=== PATIENT | male | born 1975 | race Two or more races ===

== ENCOUNTER 2019-02-03 21:55 | Emergency (ER) | payer SELFPAY ==
[~2019-02-03] VITALS: Ht 177.8 cm; Wt 79.4 kg
[2019-02-03 22:00] VITALS: BP 112/72
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
--- NOTE | 2019-02-03 22:38 | NUR ---
PT OFF TO CT
--- NOTE | 2019-02-03 23:11 | NUR ---
ED Nurse Note: [employer] at the bedside.
--- NOTE | 2019-02-03 23:17 | Diagnostic Imaging Report ---
Indication: Altered mental status Technique: Contiguous 5 mm thick transaxial imaging of the head obtained in a Siemens Sensation [address] scanner. Soft tissue and bone windows generated. Automatic Exposure Control was utilized. Total Dose length Product (DLP): 1578.[address] Dose Index Volume (CTDIvol): 62.7 mGy Comparison: none Findings: The size and configuration of the cortical sulci, basal cisterns, and ventricles are within normal limits for age. There is no mass effect, midline shift, or edema identified. There is no evidence of acute hemorrhage or abnormal intra-axial or extra-axial fluid collections. The bones and soft tissues are unremarkable. Impression: No mass effect, edema or acute bleed. The CT scanner at [facility] is accredited by the [employer] and the scans are performed using dose optimization techniques as appropriate to a performed exam including Automatic Exposure control.
--- NOTE | 2019-02-03 23:25 | NUR ---
ED Nurse Note: back from CT
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
[2019-02-04 00:11] VITALS: BP 119/80
--- NOTE | 2019-02-04 00:30 | NUR ---
ED Nurse Note: pt in bed resting with eyes closed. No acute distress is noted.
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
--- NOTE | 2019-02-04 01:50 | NUR ---
ED Nurse Note: pt in bed resting with eyes closed. no acute distress is present at this time.
--- NOTE | 2019-02-04 02:05 | NUR ---
ED Nurse Note: pt is awake, alert x4. ambulated to use the restroom.
[2019-02-04 02:14] VITALS: BP 125/75
--- NOTE | 2019-02-04 02:14 | NUR ---
ER DISCHARGE NOTE: Patient is cleared to be discharged per ERMD, pt is aox4, on room air, with stable vital signs. pt was given d instructions, pt was able to verbalize understanding, pt id band removed without complications. pt is able to ambulate with steady gait. pt took all belongings.
--- NOTE | 2019-02-04 11:42 | Diagnostic Imaging Report ---
Indication: Dyspnea Comparison: None A single view chest radiograph was obtained. Findings: Cardiomediastinal appearance is within normal limits for age. The lungs are clear. Pulmonary vascularity is appropriate. The diaphragmatic contour is smooth and costophrenic angles are sharp. No pleural effusions are identified. The bones are unremarkable. Impression: No acute findings
== END 2019-02-04 02:14 | disposition home or self-care (01) ==
LOC: EDBD 21:55 → EMR 22:09
DX: F19.929 Other psychoactive substance use, unspecified with intoxication, unspecified (principal); M54.2 Cervicalgia; R06.00 Dyspnea, unspecified; R41.82 Altered mental status, unspecified; V43.52XA Car driver injured in collision with other type car in traffic accident, initial encounter; Y92.410 Unspecified street and highway as the place of occurrence of the external cause
CPT/HCPCS: 70450; 71045; 72125; 99284